=== PATIENT | female | born 1990 | race Caucasian/White ===

== ENCOUNTER → 2016-12-23 | Outpatient (CLI) | payer OTHER, MEDICAID ==
[~2016-12-23] MED LIST: DICY20TA57 PO; PRD20T PO
--- NOTE | 2016-12-23 17:03 | Diagnostic Imaging Report ---
INDICATION: patient, previous substance abuse. TECHNIQUE: OB sonography performed with transabdominal views. COMPARISON: There is no previous study for comparison. FINDINGS: Single live intrauterine fetus is seen measuring 35 weeks 5 days in size with heart rate of 152 beats per minute. Placenta is anterior with no evidence of previa. Amniotic fluid index is normal at 16 cm. The fetus is in cephalic presentation. A full anatomical survey was not performed. Biometrical measurements are as follows: Biparietal 8.6 cm, age 34 weeks 6 days. Head circumference 32.6 cm, age 35 weeks 4 days. Abdominal circumference 32.5 cm, age 36 weeks 4 days. Femur length 6.9 cm, age 35 weeks 4 days. Sonographic estimate age: 35 weeks 5 days. Sonographic estimated date of delivery: 01/22/2017. Estimated Weight: 2802 gm (+/- 409 gm). LMP percentile: 52%. heart rate: 152 beats per minute. number: 1 of 1. IMPRESSION: Single live intrauterine fetus measuring 35 weeks 5 days by composite measurements. There was no detectable abnormality. A full anatomical survey was not performed at this time. These dates are close to the dates expected clinically, although prior films are not available for comparison. Dictated by: Dictated on workstation # [id number]
== END ==
LOC: RAD 13:46
PROVIDERS: ATTEND Obstetrics & Gynecology
DX: O99.323 Drug use complicating pregnancy, third trimester (principal); F15.10 Other stimulant abuse, uncomplicated; O99.333 Smoking (tobacco) complicating pregnancy, third trimester; Z3A.35 35 weeks gestation of pregnancy
CPT/HCPCS: 76805

== ENCOUNTER 2017-01-09 21:02 | Outpatient (CLI) | payer OTHER, MEDICAID ==
[~2017-01-09] VITALS: Ht 167.6 cm; Wt 95.3 kg
[~2017-01-09 21:02] MED LIST changes: +DOCU-143 PO; +PREN-37 PO; +RANI150T15 PO
[2017-01-09 21:16] VITALS: BP 125/63
[2017-01-09 21:30] LABS: BILIRUBIN,URINE NEGATIVE (NEGATIVE); KETONES,URINE NEGATIVE (NEGATIVE); LEUKOCYTE ESTERASE ,URINE 2+ (NEGATIVE); NITRITE,URINE NEGATIVE (NEGATIVE); PH,URINE 6 (5-9); PROTEIN,URINE NEGATIVE (NEGATIVE); UROBILINOGEN,URINE NORMAL (NORMAL)
[2017-01-09 21:41] LABS: SQUAMOUS EPITHELIAL CELL,UR >50 /HPF
--- NOTE | 2017-01-12 14:48 | Physician Query-Final Dx ---
FARRAH ANDERSON 01/12/17 1448: Clinic Account Progress/Dx Physician Query: Please give diagnosis Date of Service January 09, 2017 at 21:02 LUCIA KAY DO 01/13/17 1801: Clinic Account Progress/Dx DIAGNOSIS: Diagnosis Threatened labor, third trimester, not delivered FARRAH ANDERSON January 12, 2017 14:48 LUCIA KAY DO January 13, 2017 18:01
== END 2017-01-09 22:35 | disposition home or self-care (01) ==
LOC: LDRP 21:02 → WSo 21:02
PROVIDERS: ATTEND Obstetrics & Gynecology
DX: O47.1 False labor at or after 37 completed weeks of gestation (principal); Z3A.38 38 weeks gestation of pregnancy
CPT/HCPCS: 80306; 81000; 99213

== ENCOUNTER 2017-01-18 12:15 | Inpatient (IN) | payer OTHER, MEDICAID ==
[~2017-01-18] VITALS: Ht 165.1 cm; Wt 95.3 kg
[2017-01-18 12:15] VITALS: BP 123/76
[2017-01-18 12:48] LABS: BILIRUBIN,URINE NEGATIVE (NEGATIVE); KETONES,URINE NEGATIVE (NEGATIVE); LEUKOCYTE ESTERASE ,URINE 1+ (NEGATIVE); NITRITE,URINE NEGATIVE (NEGATIVE); PH,URINE 7 (5-9); PROTEIN,URINE NEGATIVE (NEGATIVE); UROBILINOGEN,URINE NORMAL (NORMAL)
[2017-01-18 12:56] LABS: WBC,URINE 0-2 /HPF
[2017-01-18] MEDS ORDERED: D5 LR IV SOLUTION 1,000 ML IV ONE (13:22)
[2017-01-18] MEDS ORDERED: D5 LR IV SOLUTION 1,000 ML IV SCH (13:30)
[2017-01-18] MEDS ORDERED: ceFAZolin 2 GM/50 ML NS 50 ML IV ONE (14:00)
[2017-01-18 14:28] LABS: BASOPHILS % (AUTO) 0 % (0-10); EOSINOPHILS # (AUTO) 0.1 10^3/uL (0.0-0.3); EOSINOPHILS % (AUTO) 1 % (0-10); LYMPHOCYTES # (AUTO) 2.8 X 10^3 (1.0-4.0); LYMPHOCYTES % (AUTO) 23 % (12-44); MEAN CORPUSCULAR HEMOGLOBIN 25 PG (25-34); MEAN CORPUSCULAR HGB CONC 32 G/DL (32-36); MEAN CORPUSCULAR VOLUME 77 FL (80-99); MEAN PLATELET VOLUME 9.7 FL (7.4-10.4); MONOCYTES # (AUTO) 0.8 X 10^3 (0.0-1.0); MONOCYTES % (AUTO) 6 % (0-12); NEUTROPHILS # (AUTO) 8.8 X 10^3 (1.8-7.8); NEUTROPHILS % (AUTO) 70 % (42-75); PLATELET COUNT 443 10^3/uL (130-400); RED BLOOD COUNT 4.44 10^6/uL (4.35-5.85); WHITE BLOOD COUNT 12.6 10^3/uL (4.3-11.0)
[2017-01-18 16:00] VITALS: BP_SYST 136
[2017-01-18] MEDS: D5 LR IV SOLUTION 1,000 ML IV SCH ×2 (16:15→23:21)
[2017-01-18] MEDS ORDERED: BUTORPHANOL INJ 2 MG/ML (STADOL) VIAL IV ONE (17:45)
[2017-01-18] MEDS: ceFAZolin INJECTION 1,000 MG in NS (IVPB) 50 ML IV SCH ×2 (17:57→22:58)
[2017-01-18 21:00] VITALS: BP 130/66
[2017-01-18] MEDS ORDERED: diphenhydrAMINE 50 MG/ML INJ (BENADRYL) IVP ONE (23:30)
[2017-01-18] MEDS ORDERED: CALCIUM CARBONATE 500 MG (TUMS) TAB.CHEW PO ONE (23:30)
[2017-01-19] VITALS (79 sets, daily range): BP systolic 112–160; BP diastolic 58–90
[2017-01-19] MEDS ORDERED: SUFENTA 0.6MCG/ML BUPIVA 0.125 100 ML ONE (02:05)
[2017-01-19] MEDS ORDERED: LIDOCAINE/EPI 1%-1:200,000 (XYLOCAINE) 30 ML VIAL ONE (02:13)
[2017-01-19] MEDS ORDERED: ceFAZolin 1,000 MG (ANCEF) VIAL ONE (03:22)
[2017-01-19] MEDS: ceFAZolin INJECTION 1,000 MG in NS (IVPB) 50 ML IV SCH ×4 (03:31→11:48)
[2017-01-19] MEDS: D5 LR IV SOLUTION 1,000 ML IV SCH ×2 (03:45→10:52)
[2017-01-19] MEDS ORDERED: LACTATED RINGERS 1,000 ML IV ONE (04:48)
[2017-01-19] MEDS ORDERED: EPIDURAL (SUFENTA 0.6MCG/ML BUPIVA 0.125%) 100 ML BAG EPI SCH (05:00)
[2017-01-19] MEDS ORDERED: NALOXONE 0.4 MG/ML 1 ML (NARCAN) VIAL IV PRN (05:00)
[2017-01-19] MEDS ORDERED: OXYTOCIN/NORMAL SALINE 500 ML IV SCH ×3 (08:35→15:58)
[2017-01-19] MEDS ORDERED: MINERAL OIL CONCENTRATE 99.9% 15 ML UDC ONE (08:36)
--- NOTE | 2017-01-19 08:47 | History & Physical-OB ---
OB - Chief Complaint & HPI Date Date of Admission: Date of Admission: Jan 19, 2017 at 02:26 Chief Complaint/History OB-Reason for Admission/Chief: Onset of Labor Hx : 2 Hx Para: 0 Expected Date of Delivery: Jan 21, 2017 Gestational Age in Weeks: 39 Gestational Age in Days: 5 Other reason for admission: 26 y/o @ 39w5d who presented yesterday for possible LOF. Found not to be ruptured but cervix was noted to change from 3 to 6 cm, after which contractions ceased. She was checked again around 0400 this morning and told she was 7.5cm and epidural was started. She has been comfortable until then. No VB. Was managed by Dr. Gaxiola applications sales representative until 0700 this morning when I took over. c/b history of methamphetamine use (negative UDS in our office thus far), h/o incarceration related to drug use, GBS+, threatened PTL s/p BTMZ 12/29- , GERD on zantac. History of Labs A+ Antibody neg RI Hep B/C neg/neg RPR NR HIV neg GC/CT neg/neg GBS+ Allergies and Home Medications Allergies Coded Allergies: hydrocodone bit (Verified Allergy, Mild, HIVES, 01/09/17) amoxicillin trihydrate (Verified Allergy, Unknown, 01/09/17) potassium clavulanate (Verified Allergy, Unknown, 01/09/17) Home Medications Docusate Sodium 100 Mg Capsule, 100 MG PO DAILY, (Reported) Vit/Iron Fumarate/FA 1 Each Tablet, 1 EACH PO DAILY, (Reported) Ranitidine HCl 150 Mg Tablet, 150 MG PO DAILY, (Reported) OB - History Hx of Present Care: Yes Ultrasounds: Normal mid trimester US Obstetrical Complications: Other (threatened PTL s/p BTMZ) Medical Complications: Other (h/o methamphetamine use, GERD on zantac) Information Induced Hypertension: No Maternal Gestational Diabetes: No Hemorrhage: No Obstetrical History Hx : 2 Hx Para: 0 Hx Termination: No Delivery History Hx Blood Disorders: No Adverse Rxn to Tranfusion: No Patient Past Medical History see above Social History/Family History HIV/AIDS: No Recent Infectious Disease Expo: No Sexually Transmitted Disease: No Alcohol Use: Denies Use Recreational Drug Use: Yes (prior use, attends rehab in [place]) Immunizations Hepatitis A: No Hepatitis B: No Tetanus Booster (TDap): Less than 5yrs Rubella: immune RPR/VDRL: Negative GBS Status: Positive HBsAG: Negative OB - Admission Exam Physical Exam Time Seen by Provider: 08:00 Vitals: Vital Signs 01/19/17 01/19/17 05:00 07:00 Temp 98.1 Pulse 77 Resp 18 B/P (MAP) 137/76 Pulse Ox 97 HEENT: NCAT Cervical Dilatation: 5cm Effacement: 75% Station: Ballotable Membranes: Ruptured Amniotic Fluid: Thin Meconium Heart Rate: 140's Accelerations: Accelerations Present Decelerations: No Decelerations Short Term Variability: Present Siding Stapler Variability: Average (6-25) Contractions on Admission: 6-10 Minutes Apart Labs Laboratory Tests Test 01/18/17 12:30 01/18/17 14:15 Range/Units Urine Color YELLOW Urine Clarity SLIGHTLY CLOUDY Urine pH 7 5-9 Urine Specific [place] 1.015 L 1.016-1.022 Urine Protein NEGATIVE NEGATIVE Urine Glucose (UA) NEGATIVE NEGATIVE Urine Ketones NEGATIVE NEGATIVE Urine Nitrite NEGATIVE NEGATIVE Urine Bilirubin NEGATIVE NEGATIVE Urine Urobilinogen NORMAL NORMAL MG/DL Urine Leukocyte Esterase 1+ H NEGATIVE Urine RBC (Auto) NEGATIVE NEGATIVE Urine RBC NONE /HPF Urine WBC 0-2 /HPF Urine Squamous Epithelial Cells 2-5 /HPF Urine Crystals PRESENT H /LPF Urine Amorphous Sediment RARE RUSTY URATES H /LPF Urine Bacteria TRACE /HPF Urine Casts NONE /LPF Urine Mucus NEGATIVE /LPF Urine Culture Indicated NO Urine Opiates Screen NEGATIVE NEGATIVE Urine Oxycodone Screen NEGATIVE NEGATIVE Urine Methadone Screen NEGATIVE NEGATIVE Urine Propoxyphene Screen NEGATIVE NEGATIVE Urine Barbiturates Screen NEGATIVE NEGATIVE Ur Tricyclic Antidepressants Screen NEGATIVE NEGATIVE Urine Phencyclidine Screen NEGATIVE NEGATIVE Urine Amphetamines Screen NEGATIVE NEGATIVE Urine Methamphetamines Screen NEGATIVE NEGATIVE Urine Benzodiazepines Screen NEGATIVE NEGATIVE Urine Cocaine Screen NEGATIVE NEGATIVE Urine Cannabinoids Screen NEGATIVE NEGATIVE White Blood Count 12.6 H 4.3-11.0 10^3/uL Red Blood Count 4.44 4.35-5.85 10^6/uL Hemoglobin 10.9 L 11.5-16.0 G/DL Hematocrit 34 L 35-52 % Mean Corpuscular Volume 77 L 80-99 FL Mean Corpuscular Hemoglobin 25 25-34 PG Mean Corpuscular Hemoglobin Concent 32 32-36 G/DL Red Cell Distribution Width 18.0 H 10.0-14.5 % Platelet Count 443 H 130-400 10^3/uL Mean Platelet Volume 9.7 7.4-10.4 FL Neutrophils (%) (Auto) 70 42-75 % Lymphocytes (%) (Auto) 23 12-44 % Monocytes (%) (Auto) 6 0-12 % Eosinophils (%) (Auto) 1 0-10 % Basophils (%) (Auto) 0 0-10 % Neutrophils # (Auto) 8.8 H 1.8-7.8 X 10^3 Lymphocytes # (Auto) 2.8 1.0-4.0 X 10^3 Monocytes # (Auto) 0.8 0.0-1.0 X 10^3 Eosinophils # (Auto) 0.1 0.0-0.3 10^3/uL Basophils # (Auto) 0.0 0.0-0.1 10^3/uL OB - Assessment/Plan/Diagnosis Plan Induction Method: per Pitocin Protocol Other Plan 26 y/o @ 39w5d with prolonged latent labor, GBS+ H/o methamphetamine use, negative UDS through our office throughout Rh+ RI I discussed with Leanne and her mother that she is term, and being 5cm currently I would recommend augmentation of labor at this time. Another option would be to pull the epidural and d/c home as she does not appear to be in active labor. However, since she is GBS+ and has an epidural in place will proceed with augmentation with their consent. AROM completed with thin meconium. Start pitocin for augmentation. Ancef for GBS ppx ASVD AVERY DEGROOT MD Jan 19, 2017 08:47
[2017-01-19] MEDS ORDERED: MINERAL OIL CONCENTRATE 99.9% 15 ML UDC TOP PRN (09:00)
--- NOTE | 2017-01-19 15:48 | OB Labor & Delivery Record ---
Vag Delivery Note Vag Delivery Note Date of Delivery: 01/19/17 Preoperative Diagnosis: Leanne Webb is a 26 y/o @ 39w5d with augmentation of prolonged latent phase of labor, GBS+ Postoperative Diagnosis: Same Surgeon: Avery Issa MD Anesthesia: Epidural Delivery Type: Spontaneous vaginal delivery Findings: Viable female , apgars 8/9, weight [id number] Lacerations: small bilateral vaginal sidewall lacerations (repaired), periurethral abrasions (hemostatic) Intact placenta with 3 vessel cord. No nuchal cord, body cord or shoulder dystocia Estimated Blood Loss: 300 ml Complications: None Condition: Stable Description of Procedure: The patient is a 26 y/o who presented @ 39w4d with prolonged latent phase of labor. She did have labor in December for which she received two doses of betamethasone. On this admission she changed from 3 to 5cm and then stalled. I took over the following morning (January 19, 2017) at 39w5d. Management options were discussed and she elected to augment labor. AROM was performed with thin meconium; pitocin was started for augmentation. Ancef was administered for GBS prophylaxis. Epidural was in place for analgesia. She progressed to complete dilatation and began to push. She was then set up for delivery. The infant's head was delivered atraumatically in the occiput anterior position. The shoulders and remainder of the infant's body were then delivered without difficulty after reducing an arm presentation of the left posterior arm. Upon delivery, the head was held below the level of the perineum and the mouth and nares were bulb suctioned. The cord was doubly clamped and cut and the infant was handed off to the pediatric staff. An intact placenta with 3-vessel cord delivered via [place] and there was found to be minimal bleeding. Vigorous fundal massage was performed and the fundus was found to be firm. IV oxytocin was given. Examination of the vagina and perineum revealed small bilateral vaginal sidewall lacerations repaired in the usual fashion with 3-0 vicryl suture. Following the repair, sponge, instrument and needle counts were correct. Mom and baby were both in stable condition in the labor suite. Vitals - Labs Vital Signs - I&O Vital Signs Date Time Temp Pulse Resp B/P (MAP) Pulse Ox O2 Delivery O2 Flow Rate FiO2 01/19/17 09:30 75 18 128/77 96 17 09:15 90 18 128/79 96 17 09:00 97.7 77 18 127/72 97 17 08:45 80 18 128/73 98 01/19/17 08:30 79 18 127/74 99 17 08:15 76 18 134/72 99 17 08:00 81 18 140/68 99 17 07:45 92 18 130/80 99 01/19/17 07:30 97.1 77 18 132/79 97 01/19/17 07:15 78 18 143/81 96 01/19/17 07:00 77 18 137/76 97 01/19/17 06:45 78 18 123/65 97 01/19/17 06:30 85 18 135/74 98 17 06:15 79 18 133/62 97 01/19/17 06:00 91 18 133/67 96 01/19/17 05:45 71 18 130/69 96 01/19/17 05:30 84 18 118/70 98 01/19/17 05:15 86 18 115/69 91 01/19/17 05:00 98.1 101 18 113/67 94 01/19/17 04:45 83 18 127/68 96 01/19/17 04:30 76 18 116/63 96 17 04:15 86 18 127/67 95 17 04:00 93 18 132/69 97 01/19/17 03:45 87 18 116/66 95 17 03:35 79 18 131/70 95 01/19/17 03:30 92 18 135/70 98 6/17 03:28 88 18 139/67 98 6/17 03:25 104 18 125/65 6/17 03:21 93 18 137/64 97 6/17 03:18 107 18 138/60 6/17 03:15 95 18 144/78 99 6/17 03:12 85 18 134/70 98 617 03:09 105 18 130/68 6/17 03:06 93 18 137/63 98 6/17 03:03 93 18 138/66 6/17 03:00 107 18 133/61 98 01/19/17 02:57 99 18 148/70 99 01/19/17 02:54 96 18 139/67 01/19/17 02:51 86 18 153/71 99 01/19/17 02:48 88 18 160/72 100 01/19/17 02:45 93 18 152/75 89 01/18/17 23:50 98.2 01/18/17 21:00 96 18 130/66 01/18/17 16:00 98.8 92 18 136/ I & O 01/19/17 07:00 Intake Total 4050 ml Balance 4050 ml Labs Microbiology 01/18/17 Urine Culture - Preliminary, Resulted AVERY ISSA MD Jan 19, 2017 15:48
[2017-01-19] MEDS ORDERED: MEASLES,MUMPS,RUBELLA 1 EA INJ SQ ONE (16:00)
[2017-01-19] MEDS ORDERED: BENZOCAINE/MENTHOL (DERMOPLAST) 56 ML CAN TP PRN (16:00)
[2017-01-19] MEDS ORDERED: TETANUS,DIPTH,PERTUSS P/F (BOOSTRIX) 0.5 ML VIAL IM ONE (16:00)
[2017-01-19] MEDS: WITCH HAZEL(TUCKS) 40 EA JAR TOP PRN (16:24)
[2017-01-19] MEDS: IBUPROFEN 600 MG (MOTRIN) TAB PO SCH ×2 (16:27→22:00)
[2017-01-19] MEDS ORDERED: FERR-74 PO (18:35)
[2017-01-19] MEDS ORDERED: IBUP-1773 PO (18:35)
[2017-01-19] MEDS ORDERED: OXYC-197 PO (18:35)
--- NOTE | 2017-01-19 18:36 | Discharge Inst-Women's Service ---
Discharge Inst-Women's Serv Depart Medication/Instructions New, Converted or Re-Newed RX: RX on Chart Final Diagnosis Term intrauterine , augmentation of labor, spontaneous vaginal delivery Consults/Follow Up Additional Follow Up: Yes Orders/Referrals [address] Issa Activity Activity: Activity as Tolerated Driving Instructions: You May Drive (unless taking percocet for pain control) NO SMOKING: NO SMOKING Nothing Inside Vagina: No Douching, No [place], No Tampons Diet Discharge Diet: No Restrictions Symptoms to Report to : Bleeding Excessive, Pain Increased, Fever Over 101 Degrees F, Pain/Pressure in Chest, Vaginal Bleeding Increase, Dizziness/Fainting , Nausea/Vomiting, Shortness of Breath For Any Problems or Questions: Contact Your Physician, Go to Emergency Room AVERY ISSA MD Jan 19, 2017 18:36
[2017-01-19] MEDS ORDERED: oxyCODONE/APAP 5/325MG (PERCOCET 5) TABLET PO PRN (20:30)
[2017-01-19] MEDS: DOCUSATE SODIUM 100 MG (COLACE) CAP PO SCH (22:00)
[2017-01-19] MEDS ORDERED: CATHETER FLUSH 10 ML SYR IV SCH (22:00)
[2017-01-20 01:10] VITALS: BP 144/74
[2017-01-20 04:40] VITALS: BP 112/67
[2017-01-20] MEDS: IBUPROFEN 600 MG (MOTRIN) TAB PO SCH ×3 (04:41→17:10)
[2017-01-20 06:59] LABS: BASOPHILS % (AUTO) 0 % (0-10); EOSINOPHILS # (AUTO) 0.1 10^3/uL (0.0-0.3); EOSINOPHILS % (AUTO) 1 % (0-10); LYMPHOCYTES # (AUTO) 3.4 X 10^3 (1.0-4.0); LYMPHOCYTES % (AUTO) 17 % (12-44); MEAN CORPUSCULAR HEMOGLOBIN 25 PG (25-34); MEAN CORPUSCULAR HGB CONC 32 G/DL (32-36); MEAN CORPUSCULAR VOLUME 77 FL (80-99); MEAN PLATELET VOLUME 9.4 FL (7.4-10.4); MONOCYTES # (AUTO) 1.3 X 10^3 (0.0-1.0); MONOCYTES % (AUTO) 7 % (0-12); NEUTROPHILS # (AUTO) 14.9 X 10^3 (1.8-7.8); NEUTROPHILS % (AUTO) 75 % (42-75); PLATELET COUNT 414 10^3/uL (130-400); WHITE BLOOD COUNT 19.7 10^3/uL (4.3-11.0)
[2017-01-20 08:00] VITALS: BP 119/67
[2017-01-20] MEDS: FERROUS SULF 325 MG (IRON) TAB PO SCH (08:00)
[2017-01-20] MEDS: DOCUSATE SODIUM 100 MG (COLACE) CAP PO SCH ×2 (08:00→21:08)
[2017-01-20] MEDS: PRENATAL VITAMIN 1 EA TAB PO SCH (08:00)
[2017-01-20 08:18] LABS: ALANINE AMINOTRANSFERASE 17 U/L (0-55); ALBUMIN 2.7 G/DL (3.2-4.5); ANION GAP 6 MMOL/L (5-14); ASPARTATE AMINO TRANSFERASE 32 U/L (5-34); BILIRUBIN,TOTAL 0.3 MG/DL (0.1-1.0); BLOOD UREA NITROGEN 6 MG/DL (7-18); BUN/CREATININE RATIO 12; CARBON DIOXIDE 23 MMOL/L (21-32); CHLORIDE 111 MMOL/L (98-107); CREATININE SERUM 0.52 MG/DL (0.60-1.30); GFR ESTIMATED > 60; GLUCOSE 78 MG/DL (70-105); LACTATE DEHYDROGENASE 215 U/L (125-220); POTASSIUM 4.1 MMOL/L (3.6-5.0); SODIUM 140 MMOL/L (135-145); TOTAL PROTEIN 4.6 G/DL (6.4-8.2)
--- NOTE | 2017-01-20 08:21 | Postpartum Progress Note ---
Note Note Day # 1 Subjective: Patient is without complaints. Ambulating, voiding. Tolerating a regular diet without nausea or vomiting. Normal lochia. Pain is well controlled with oral pain medications. Breast feeding. Objective: VS - Last 72 Hours, by Label 01/18/17 01/18/17 01/18/17 01/18/17 12:15 16:00 21:00 23:50 Temp 98.4 98.8 98.2 Pulse 95 92 96 Resp 18 18 18 B/P (MAP) 123/76 136/ 130/66 01/19/17 01/19/17 01/19/17 01/19/17 02:45 02:48 02:51 02:54 Pulse 93 88 86 96 Resp 18 18 18 18 B/P (MAP) 152/75 160/72 153/71 139/67 Pulse Ox 89 100 99 01/19/17 01/19/17 01/19/17 01/19/17 02:57 03:00 03:03 03:06 Pulse 99 107 93 93 Resp 18 18 18 18 B/P (MAP) 148/70 133/61 138/66 137/63 Pulse Ox 99 98 98 01/19/17 01/19/17 01/19/17 01/19/17 03:09 03:12 03:15 03:18 Pulse 105 85 95 107 Resp 18 18 18 18 B/P (MAP) 130/68 134/70 144/78 138/60 Pulse Ox 98 99 01/19/17 01/19/17 01/19/17 01/19/17 03:21 03:25 03:28 03:30 Pulse 93 104 88 92 Resp 18 18 18 18 B/P (MAP) 137/64 125/65 139/67 135/70 Pulse Ox 97 98 98 01/19/17 01/19/17 01/19/17 01/19/17 03:35 03:45 04:00 04:15 Pulse 79 87 93 86 Resp 18 18 18 18 B/P (MAP) 131/70 116/66 132/69 127/67 Pulse Ox 95 95 97 95 01/19/17 01/19/17 01/19/17 01/19/17 04:30 04:45 05:00 05:15 Temp 98.1 Pulse 76 83 101 86 Resp 18 18 18 18 B/P (MAP) 116/63 127/68 113/67 115/69 Pulse Ox 96 96 94 91 /6/17 6/6/17 6/6/17 6/6/17 05:30 05:45 06:00 06:15 Pulse 84 71 91 79 Resp 18 18 18 18 B/P (MAP) 118/70 130/69 133/67 133/62 Pulse Ox 98 96 96 97 /6/17 6/6/17 6/6/17 6/6/17 06:30 06:45 07:00 07:15 Pulse 85 78 77 78 Resp 18 18 18 18 B/P (MAP) 135/74 123/65 137/76 143/81 Pulse Ox 98 97 97 96 /6/17 6/6/17 6/6/17 6//17 07:30 07:45 08:00 08:15 Temp 97.1 Pulse 77 92 81 76 Resp 18 18 18 18 B/P (MAP) 132/79 130/80 140/68 134/72 Pulse Ox 97 99 99 99 6/17 6/6/17 6/6/17 6//17 08:30 08:45 09:00 09:15 Temp 97.7 Pulse 79 80 77 90 Resp 18 18 18 18 B/P (MAP) 127/74 128/73 127/72 128/79 Pulse Ox 99 98 97 96 /6/17 6/6/17 6/6/17 /6/17 09:30 09:45 10:00 10:15 Pulse 75 80 80 79 Resp 18 18 18 18 B/P (MAP) 128/77 130/79 129/74 116/60 Pulse Ox 96 97 97 100 O2 Flow Rate 15.00 /6/17 6/6/17 6/6/17 6//17 10:30 10:45 11:00 11:15 Temp 98.0 Pulse 77 77 79 90 Resp 18 18 18 18 B/P (MAP) 119/65 125/75 116/61 119/58 Pulse Ox 100 100 100 99 O2 Flow Rate 15.00 15.00 15.00 15.00 6/6/17 6/6/17 6/6/17 6/6/17 11:30 11:42 11:47 11:52 Temp 98.5 Pulse 90 100 83 90 Resp 18 18 18 18 B/P (MAP) 122/71 127/68 133/64 140/73 Pulse Ox 99 100 100 100 O2 Flow Rate 15.00 15.00 15.00 15.00 6/6/17 6/6/17 6/6/17 6/6/17 11:56 12:15 12:30 12:45 Pulse 106 85 83 83 Resp 18 18 18 18 B/P (MAP) 133/64 129/75 138/76 Pulse Ox 99 99 99 99 O2 Flow Rate 15.00 15.00 6/6/17 6/6/17 6/6/17 6/6/17 13:00 13:13 13:18 13:24 Temp 98.5 Pulse 98 101 86 94 Resp 18 18 18 18 B/P (MAP) 132/71 147/78 143/72 146/65 Pulse Ox 99 100 100 100 6/6/17 6/6/17 6/6/17 6/6/17 13:30 13:34 13:38 13:44 Pulse 87 88 85 89 Resp 18 18 18 18 B/P (MAP) 145/74 130/85 147/78 144/79 Pulse Ox 100 99 99 100 6/6/17 6/6/17 6/6/17 6/6/17 13:48 13:54 14:10 14:15 Temp 97.3 Pulse 97 89 89 93 Resp 18 18 18 18 B/P (MAP) 147/83 144/80 156/90 149/84 Pulse Ox 100 100 100 100 /6/17 6/6/17 6/6/17 6/6/17 14:30 14:45 15:00 15:15 Pulse 82 86 85 101 Resp 18 18 18 18 B/P (MAP) 141/83 147/82 142/84 151/80 Pulse Ox 100 100 100 6/6/17 6/6/17 6/6/17 6/6/17 15:30 15:45 16:00 16:15 Temp 98.8 Pulse 107 114 100 103 Resp 18 18 18 18 B/P (MAP) 139/65 128/61 137/62 133/60 6/6/17 6/6/17 6/6/17 6/6/17 16:30 17:00 17:30 21:55 Temp 99.0 99.4 98.1 Pulse 106 96 107 93 Resp 18 18 18 18 B/P (MAP) 133/62 134/75 112/77 138/73 Pulse Ox 98 01/20/17 01/20/17 01/20/17 01:10 04:40 08:00 Temp 98.0 98.0 98.1 Pulse 95 94 94 Resp 18 18 18 B/P (MAP) 144/74 112/67 119/67 Pulse Ox 99 98 98 Physical Exam: General - Alert and oriented, no apparent distress Abdomen - Soft, appropriately tender to palpation, non-distended, fundus firm at umbilicus Laboratory Tests Test 01/20/17 06:42 Range/Units White Blood Count 19.7 H 4.3-11.0 10^3/uL Red Blood Count 4.20 L 4.35-5.85 10^6/uL Hemoglobin 10.3 L 11.5-16.0 G/DL Hematocrit 32 L 35-52 % Mean Corpuscular Volume 77 L 80-99 FL Mean Corpuscular Hemoglobin 25 25-34 PG Mean Corpuscular Hemoglobin Concent 32 32-36 G/DL Red Cell Distribution Width 18.0 H 10.0-14.5 % Platelet Count 414 H 130-400 10^3/uL Mean Platelet Volume 9.4 7.4-10.4 FL Neutrophils (%) (Auto) 75 42-75 % Lymphocytes (%) (Auto) 17 12-44 % Monocytes (%) (Auto) 7 0-12 % Eosinophils (%) (Auto) 1 0-10 % Basophils (%) (Auto) 0 0-10 % Neutrophils # (Auto) 14.9 H 1.8-7.8 X 10^3 Lymphocytes # (Auto) 3.4 1.0-4.0 X 10^3 Monocytes # (Auto) 1.3 H 0.0-1.0 X 10^3 Eosinophils # (Auto) 0.1 0.0-0.3 10^3/uL Basophils # (Auto) 0.0 0.0-0.1 10^3/uL Assessment: 26 y/o post- day # 1, status post spontaneous vaginal delivery. Recovering well, hemodynamically stable Acute blood loss anemia Hgb 10.3 H/o methamphetamine use, UDS neg on admission and throughout in office Plan: Routine care. Encourage breast feeding. Encourage ambulation. Ferrous sulfate supplementation. Appreciate SW involvement, consult placed Plan for discharge tomorrow, f/u with me in 6 weeks with Nexplanon placement Vitals - Labs Vital Signs - I&O Vital Signs Date Time Temp Pulse Resp B/P (MAP) Pulse Ox O2 Delivery O2 Flow Rate FiO2 01/20/17 08:00 98.1 94 18 119/67 98 01/20/17 04:40 98.0 94 18 112/67 98 01/20/17 01:10 98.0 95 18 144/74 99 01/19/17 21:55 98.1 93 18 138/73 98 01/19/17 17:30 99.4 107 18 112/77 01/19/17 17:00 96 18 134/75 01/19/17 16:30 99.0 106 18 133/62 01/19/17 16:15 103 18 133/60 01/19/17 16:00 100 18 137/62 01/19/17 15:45 114 18 128/61 01/19/17 15:30 98.8 107 18 139/65 01/19/17 15:15 101 18 151/80 01/19/17 15:00 85 18 142/84 100 01/19/17 14:45 86 18 147/82 100 01/19/17 14:30 82 18 141/83 100 01/19/17 14:15 93 18 149/84 100 01/19/17 14:10 89 18 156/90 100 01/19/17 13:54 97.3 89 18 144/80 100 01/19/17 13:48 97 18 147/83 100 01/19/17 13:44 89 18 144/79 100 01/19/17 13:38 85 18 147/78 99 01/19/17 13:34 88 18 130/85 99 01/19/17 13:30 87 18 145/74 100 01/19/17 13:24 94 18 146/65 100 01/19/17 13:18 86 18 143/72 100 01/19/17 13:13 101 18 147/78 100 01/19/17 13:00 98.5 98 18 132/71 99 01/19/17 12:45 83 18 99 01/19/17 12:30 83 18 138/76 99 01/19/17 12:15 85 18 129/75 99 15.00 01/19/17 11:56 106 18 133/64 99 15.00 01/19/17 11:52 98.5 90 18 140/73 100 15.00 01/19/17 11:47 83 18 133/64 100 15.00 01/19/17 11:42 100 18 127/68 100 15.00 01/19/17 11:30 90 18 122/71 99 15.00 01/19/17 11:15 90 18 119/58 99 15.00 01/19/17 11:00 98.0 79 18 116/61 100 15.00 01/19/17 10:45 77 18 125/75 100 15.00 01/19/17 10:30 77 18 119/65 100 15.00 01/19/17 10:15 79 18 116/60 100 15.00 01/19/17 10:00 80 18 129/74 97 01/19/17 09:45 80 18 130/79 97 01/19/17 09:30 75 18 128/77 96 01/19/17 09:15 90 18 128/79 96 01/19/17 09:00 97.7 77 18 127/72 97 01/19/17 08:45 80 18 128/73 98 01/19/17 08:30 79 18 127/74 99 I & O 01/20/17 06:59 Intake Total 2800 ml Output Total 1500 ml Balance 1300 ml Labs Laboratory Tests 01/20/17 06:42: White Blood Count 19.7H, Red Blood Count 4.20L, Hemoglobin 10.3L, Hematocrit 32L , Mean Corpuscular Volume 77L, Mean Corpuscular Hemoglobin 25, Mean Corpuscular Hemoglobin Concent 32, Red Cell Distribution Width 18.0H, Platelet Count 414H, Mean Platelet Volume 9.4, Neutrophils (%) (Auto) 75, Lymphocytes (%) (Auto) 17, Monocytes (%) (Auto) 7, Eosinophils (%) (Auto) 1, Basophils (%) (Auto) 0, Neutrophils # (Auto) 14.9H, Lymphocytes # (Auto) 3.4, Monocytes # (Auto) 1.3H, Eosinophils # (Auto) 0.1, Basophils # (Auto) 0.0 Microbiology 01/18/17 Urine Culture - Preliminary, AVERY Carter MD Jan 20, 2017 08:21
[2017-01-20 13:21] VITALS: BP 146/90
[2017-01-20 17:00] VITALS: BP 129/74
[2017-01-20] MEDS: WITCH HAZEL(TUCKS) 40 EA JAR TOP PRN (21:09)
[2017-01-20 21:10] VITALS: BP 137/73
[2017-01-21] MEDS: IBUPROFEN 600 MG (MOTRIN) TAB PO SCH ×2 (00:39→06:12)
[2017-01-21 00:40] VITALS: BP 123/64
[2017-01-21 06:10] VITALS: BP 130/77
--- NOTE | 2017-01-21 09:17 | Progress Note-Standard ---
Standard Progress Note Progress Notes/Assess & Plan Date Seen by Provider: Jan 21, 2017 Time Seen by Provider: 09:00 Progress/Assessment & Plan Patient doing well PPD 2 NVD. No concerns voiced, ready for dismissal. Vital Sign - Last 24 Hours 01/20/17 01/20/17 01/20/17 01/21/17 13:21 17:00 21:10 00:40 Temp 97.0 97.3 98.3 97.8 Pulse 105 101 80 84 Resp 18 18 18 18 B/P (MAP) 146/90 129/74 137/73 123/64 Pulse Ox 98 100 99 98 01/21/17 06:10 Temp 98.6 Pulse 84 Resp 18 B/P (MAP) 130/77 Pulse Ox 99 Uterine fundus firm and palpated below umbilicus 26 y/o post- day # 2, status post spontaneous vaginal delivery. Recovering well, hemodynamically stable Acute blood loss anemia Hgb 10.3 H/o methamphetamine use, UDS neg on admission and throughout in office Plan: Routine care. Encourage breast feeding. Encourage ambulation. Ferrous sulfate supplementation. Plan for discharge today, f/u in 6 weeks with Nexplanon placement HERBERTH NDIAYE DO Jan 21, 2017 9:16 am
[2017-01-21] MEDS: FERROUS SULF 325 MG (IRON) TAB PO SCH (09:46)
[2017-01-21] MEDS: PRENATAL VITAMIN 1 EA TAB PO SCH (09:46)
[2017-01-21] MEDS: DOCUSATE SODIUM 100 MG (COLACE) CAP PO SCH (09:46)
[2017-01-21 09:51] VITALS: BP 122/79
== END 2017-01-21 12:40 | disposition home or self-care (01) | DRG 775 ==
LOC: LDRP 12:15 → WSo 12:15 → LDRP 13:53 → WSo 13:53 → OBSVTOIN 01-19 02:26 → LDRP 01-19 18:30
PROVIDERS: ADMIT Obstetrics & Gynecology; ATTEND Obstetrics & Gynecology
PROC: 10E0XZZ Delivery of Products of Conception, External Approach (ICD-10-PCS; principal; 2017-01-19)
PROC: 0UQMXZZ Repair Vulva, External Approach (ICD-10-PCS; 2017-01-19)
DX: O63.0 Prolonged first stage (of labor) (principal); O99.824 Streptococcus B carrier state complicating childbirth; O71.4 Obstetric high vaginal laceration alone; O99.62 Diseases of the digestive system complicating childbirth; K21.9 Gastro-esophageal reflux disease without esophagitis; Z37.0 Single live birth; Z3A.39 39 weeks gestation of pregnancy
CPT/HCPCS: 36415; 80053; 80306; 81000; 83615; 84550; 85025; 86850; 86900; 86901; 87088; 99211; 99212; G0378

== ENCOUNTER 2017-07-10 07:39 | Emergency (ER) | payer OTHER, MEDICAID ==
[~2017-07-10] VITALS: Ht 167.6 cm; Wt 83.9 kg
[~2017-07-10 07:39] MED LIST changes: +FERR-74 PO; +IBUP-1773 PO; +OXYC-197 PO
--- OUTSIDE RECORDS SUMMARY | 2017-07-10 07:44 | XMS REPORT | Clinical Summary ---
Author Author [facility] Organization [facility] Address Unknown Phone Unavailable Care Team Providers Care Communications Field Technician Name Role Phone PCP Unavailable Source Comments Some departments are not documenting in the electronic medical record. If you do not see the information that you expected, contact Release of Information in the Health Information Management department at [phone] for further assistance in locating additional records.[facility] Allergies Not on File Current Medications Not on file Active Problems Not on file Social History Tobacco Use Types Packs/Day Years Used Date Never Assessed Sex Assigned at Date Recorded Not on file Last Filed Vital Signs Not on file Plan of Treatment Health Maintenance Due Date Last Done Comments PHYSICAL (COMPREHENSIVE) 11/04/1999 EXAM HPV VACCINES (1 of 3 - 11/04/2003 Female 3 Dose Series) PERTUSSIS VACCINE 11/04/2003 TETANUS VACCINE 2009 CERVICAL CANCER SCREENING 2013 INFLUENZA VACCINE 03/16/2017 Results Not on filefrom Last 3 Months
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
[2017-07-10 08:05] VITALS: BP 135/72
== END 2017-07-10 08:05 | disposition home or self-care (01) ==
LOC: EDUNIT# 07:39 → ER 07:40
DX: J06.9 Acute upper respiratory infection, unspecified (principal); H65.93 Unspecified nonsuppurative otitis media, bilateral; F17.210 Nicotine dependence, cigarettes, uncomplicated; Z90.89 Acquired absence of other organs; Z97.5 Presence of (intrauterine) contraceptive device; Z80.3 Family history of malignant neoplasm of breast
CPT/HCPCS: 99282

== ENCOUNTER 2017-12-20 04:09 | Emergency (ER) | payer OTHER, MEDICAID ==
[~2017-12-20] VITALS: Ht 167.6 cm; Wt 83.9 kg
[~2017-12-20 04:09] MED LIST changes: -FERR-74 PO; +FERR325T18 PO; -RANI150T15 PO; +RANI150T46 PO
[2017-12-20] MEDS ORDERED: SULF1TAB35 PO (04:41)
[2017-12-20] MEDS ORDERED: MUPI15CR TP (04:41)
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
[2017-12-20] MEDS ORDERED: ORPHENADRINE 60 MG/2 ML (NORFLEX) AMP IM ONE (04:45)
[2017-12-20] MEDS ORDERED: diphenhydrAMINE 50 MG/ML INJ (BENADRYL) IM ONE (04:45)
[2017-12-20] MEDS ORDERED: KETOROLAC 60 MG/2 ML VIAL IM ONE (04:45)
[2017-12-20] MEDS ORDERED: TRIM/SULFAMETH 160/800 (SEPTRA DS) TAB PO ONE (04:45)
[2017-12-20 05:05] VITALS: BP 113/80
[2017-12-21] MEDS ORDERED: CLIN300C11 PO (14:44)
[2017-12-21] MEDS ORDERED: TRAM50TA2 PO (14:44)
[2017-12-21] MEDS ORDERED: FLUC100T6 PO (14:47)
== END 2017-12-20 05:05 | disposition home or self-care (01) ==
LOC: EDUNIT# 04:09 → ER 04:13
DX: M62.838 Other muscle spasm (principal); M54.2 Cervicalgia; L03.012 Cellulitis of left finger; F15.10 Other stimulant abuse, uncomplicated; F17.210 Nicotine dependence, cigarettes, uncomplicated; Z97.5 Presence of (intrauterine) contraceptive device; Z80.3 Family history of malignant neoplasm of breast; Z82.49 Family history of ischemic heart disease and other diseases of the circulatory system; Z90.89 Acquired absence of other organs; Z88.5 Allergy status to narcotic agent; Z88.8 Allergy status to other drugs, medicaments and biological substances
CPT/HCPCS: 96372; 99284

== ENCOUNTER 2017-12-21 09:51 | Emergency (ER) | payer OTHER, MEDICAID ==
[~2017-12-21] VITALS: Ht 167.6 cm; Wt 83.5 kg
[~2017-12-21 09:51] MED LIST changes: +MUPI15CR TP; +SULF1TAB35 PO
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
[2017-12-21] MEDS ORDERED: NS IV 1000 ML 1,000 ML IV ONE (12:53)
[2017-12-21] MEDS ORDERED: KETOROLAC 30 MG/ML VIAL IVP STA (12:53)
[2017-12-21] MEDS ORDERED: CLINDAMYCIN 900 MG/50 ML IVPB 50 ML IV ONE (13:00)
[2017-12-21 13:30] LABS: BASOPHILS % (AUTO) 0 % (0-10); EOSINOPHILS # (AUTO) 0.1 10^3/uL (0.0-0.3); EOSINOPHILS % (AUTO) 1 % (0-10); HEMATOCRIT 38 % (35-52); HEMOGLOBIN 13.2 G/DL (11.5-16.0); LYMPHOCYTES # (AUTO) 2.4 X 10^3 (1.0-4.0); LYMPHOCYTES % (AUTO) 26 % (12-44); MEAN CORPUSCULAR HEMOGLOBIN 30 PG (25-34); MEAN CORPUSCULAR HGB CONC 35 G/DL (32-36); MEAN CORPUSCULAR VOLUME 86 FL (80-99); MEAN PLATELET VOLUME 9.2 FL (7.4-10.4); MONOCYTES # (AUTO) 0.7 X 10^3 (0.0-1.0); MONOCYTES % (AUTO) 8 % (0-12); NEUTROPHILS # (AUTO) 5.9 X 10^3 (1.8-7.8); NEUTROPHILS % (AUTO) 65 % (42-75); PLATELET COUNT 377 10^3/uL (130-400); RED BLOOD COUNT 4.42 10^6/uL (4.35-5.85); RED CELL DISTRIBUTION WIDTH 13.1 % (10.0-14.5); WHITE BLOOD COUNT 9.2 10^3/uL (4.3-11.0)
[2017-12-21 13:51] LABS: ALANINE AMINOTRANSFERASE 14 U/L (0-55); ALBUMIN 3.8 GM/DL (3.2-4.5); ALKALINE PHOSPHATASE 65 U/L (40-136); BILIRUBIN,TOTAL 0.2 MG/DL (0.1-1.0); BUN/CREATININE RATIO 21; CALCIUM 8.7 MG/DL (8.5-10.1); CARBON DIOXIDE 22 MMOL/L (21-32); CHLORIDE 110 MMOL/L (98-107); CREATININE SERUM 0.67 MG/DL (0.60-1.30); GFR ESTIMATED > 60; GLUCOSE 90 MG/DL (70-105); POTASSIUM 4.2 MMOL/L (3.6-5.0); SMEAR SCAN COMMENT YES; SODIUM 139 MMOL/L (135-145); TOTAL PROTEIN 6.5 GM/DL (6.4-8.2)
--- NOTE | 2017-12-21 14:04 | Diagnostic Imaging Report ---
INDICATION: Pain. Infection. COMPARISON: None. FINDINGS: Three views of the right knee joint demonstrate no acute fracture or dislocation. No focal osseous lesions are seen. No significant joint effusion is seen. The surrounding soft tissue structures are unremarkable. There are no radiopaque foreign bodies. IMPRESSION: 1. No acute fractures or dislocations of the right knee joint. Dictated by: Dictated on workstation # [id number]
--- NOTE | 2017-12-21 14:05 | Diagnostic Imaging Report ---
INDICATION: Pain and swelling. COMPARISON: None. FINDINGS: Three views of the left hand show no fractures, dislocations, or other acute bony abnormalities identified. Joint spaces are well maintained throughout. The soft tissues appear unremarkable. No radiopaque foreign bodies are identified. IMPRESSION: No acute fractures or dislocations of the left hand. Dictated by: Dictated on workstation # [id number]
[2017-12-21 14:07] LABS: ERYTHROCYTE SEDIMENTATION RATE 20 MM/HR (0-20)
[2017-12-21] MEDS ORDERED: TRAM50TA2 PO (14:44)
[2017-12-21] MEDS ORDERED: CLIN300C11 PO (14:44)
[2017-12-21] MEDS ORDERED: FLUC100T6 PO (14:47)
[2017-12-21 15:07] VITALS: BP 129/79
== END 2017-12-21 15:11 | disposition home or self-care (01) ==
LOC: EDUNIT# 09:51 → ER 09:54
DX: L02.611 Cutaneous abscess of right foot (principal); L02.512 Cutaneous abscess of left hand; M25.561 Pain in right knee; B35.3 Tinea pedis; M25.532 Pain in left wrist; F15.10 Other stimulant abuse, uncomplicated; F17.210 Nicotine dependence, cigarettes, uncomplicated; Z90.89 Acquired absence of other organs; Z97.5 Presence of (intrauterine) contraceptive device; Z80.3 Family history of malignant neoplasm of breast; Z82.49 Family history of ischemic heart disease and other diseases of the circulatory system; Z88.5 Allergy status to narcotic agent; Z88.0 Allergy status to penicillin; Z88.8 Allergy status to other drugs, medicaments and biological substances
CPT/HCPCS: 36415; 73130; 73562; 80053; 83605; 85025; 85652; 86141; 87040; 87070; 87205; 87252; 96361; 96365; 96375

== ENCOUNTER → 2018-01-03 | Outpatient (CLI) | payer OTHER, MEDICAID ==
[~2018-01-03] MED LIST changes: +CLIN300C11 PO; +FLUC100T6 PO; +TRAM50TA2 PO
== END ==
LOC: HH 08:00
PROVIDERS: ATTEND Internal Medicine Infectious Disease
DX: M00.9 Pyogenic arthritis, unspecified (principal)